=== PATIENT | male | born 1955 | race Caucasian/White ===

== ENCOUNTER 2018-07-06 16:00 | Observation (INO) | payer BC, SELFPAY ==
[2018-07-06] VITALS (38 sets, daily range): BP systolic 98–137; BP diastolic 70–93; PULSE 61–84; RESP 10–21; TEMP 36.5–37.2; O2SAT 92–99
[2018-07-06] MEDS: Normal Saline 1,000 ML 1000 ML IV (16:05)
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
[2018-07-06] MEDS: MORPHine 10 MG/ML VIAL 5 MG IVP ×2 (16:20→16:36)
[2018-07-06] MEDS: Normal Saline Flush 10 ML SYR IVP (16:45)
[2018-07-06 16:58] LABS: Abs Immature Grans 0.03 k/cumm (0.0-0.09); Absolute Basophil Count 0.05 k/cumm (0.0-0.2); Absolute Eosinophil Count 0.14 k/cumm (0.0-0.7); Absolute Lymphocyte Count 1.61 k/cumm (1.2-3.4); Absolute Monocyte Count 0.41 k/cumm (0.11-0.7); Absolute Neutrophil Count 4.11 k/cumm (1.2-6.7); Basophils % 0.8; Eosinophils % 2.2; HGB 14.8 g/dL (13.5-17.5); Immature Grans % 0.5; Lymphocytes % 25.4; Mean Corp. HGB Concentration 34.4 g/dL (32.0-36.0); Mean Corpuscular Hemoglobin 30.3 pg (27.0-33.0); Mean Corpuscular Volume 87.9 fL (80-95); Mean Platelet Volume 9.7 fL (8.0-11.0); Monocytes % 6.5; Neutrophils % 64.6; Platelet Count 209 x1000/uL (130-400); RBC 4.89 m/cumm (4.50-6.00); RBC Distribution Width 13.7 % (11.8-14.1); White Blood Cell Count 6.35 k/cumm (4.4-10.8)
[2018-07-06 17:12] LABS: ALT 155 U/L (12-78); AST 240 U/L (15-37); Albumin 3.4 g/dL (3.4-5.0); Alkaline Phosphatase 78 U/L (46-116); Amylase 39 U/L (25-115); Anion Gap 8.1 mmol/L (3-11); BUN 5 mg/dL (7-18); Bilirubin, Total 0.3 mg/dL (0.2-1.0); CO2 28.9 mmol/L (21.0-32.0); CREATININE 1.03 mg/dL (0.70-1.30); Calcium 7.7 mg/dL (8.5-10.1); Chloride 104 mmol/L (98-107); ETHANOL BLOOD 115.4 mg/dL (<3); Glucose 98 mg/dL (70-100); Lipase 222 U/L (73-393); Magnesium 1.8 mg/dL (1.8-2.4); Potassium 3.8 mmol/L (3.5-5.1); Sodium 141 mmol/L (136-145); Total Protein 6.3 g/dL (6.4-8.2); Troponin I 0.02 ng/mL (0.00-0.06)
[2018-07-06] MEDS: Omnipaque 350 MG/ML 100 ML BTL IJ (17:40)
[2018-07-06] MEDS: HYDROmorphone 2 MG/ML VIAL 1 MG IVP ×4 (17:45→23:56)
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
[2018-07-06 18:33] LABS: Bilirubin Negative (Negative); Blood Moderate (Negative); Clarity Clear; Glucose Negative (Negative); Ketones Negative (Negative); Leukocyte Esterase Negative (Negative); Nitrite Negative (Negative); Specific Gravity <= 1.005 (1.005-1.025); Urobilinogen 0.2 EU/dL (Up TO 0.2); pH 5.5 (5-8)
[2018-07-06 18:44] LABS: Bacteria Negative HPF (Negative); C & S Indicated? No; Casts 3-5 Coarse Granular LPF (Negative); Crystals Negative HPF (Negative); Epithelial Cells Negative HPF (Negative); Mucus Negative (Negative); Other Cells Rare Renal (Negative); WBC Negative HPF (0-5)
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
[2018-07-06] MEDS: Lactated Ringers 1,000 ML 50 ML IV (21:30)
[2018-07-06 21:34] LABS: ALT 145 U/L (12-78); AST 222 U/L (15-37); Albumin 3.5 g/dL (3.4-5.0); Alkaline Phosphatase 82 U/L (46-116); Anion Gap 7.4 mmol/L (3-11); BUN 5 mg/dL (7-18); Bilirubin, Total 0.4 mg/dL (0.2-1.0); CO2 28.6 mmol/L (21.0-32.0); CREATININE 0.93 mg/dL (0.70-1.30); Calcium 7.8 mg/dL (8.5-10.1); Chloride 107 mmol/L (98-107); Glucose 97 mg/dL (70-100); Potassium 4.2 mmol/L (3.5-5.1); Sodium 143 mmol/L (136-145); Total Protein 6.7 g/dL (6.4-8.2)
[2018-07-06] MEDS: Ketorolac 30 MG/ML VIAL IVP (21:38)
[2018-07-06] MEDS: oxyCODONE 5 MG TAB PO (23:59)
[2018-07-07] VITALS (101 sets, daily range): BP systolic 110–145; BP diastolic 53–90; PULSE 56–84; RESP 7–30; TEMP 35.8–36.9; O2SAT 88–96
[2018-07-07] MEDS: HYDROmorphone 2 MG/ML VIAL 1 MG IVP ×4 (02:45→17:54)
[2018-07-07] MEDS: Ketorolac 30 MG/ML VIAL IVP ×4 (03:47→22:37)
[2018-07-07] MEDS: oxyCODONE 5 MG TAB PO ×4 (06:11→20:24)
[2018-07-07] MEDS: Levothyroxine 150 MCG TAB PO (06:12)
--- NOTE | 2018-07-07 07:32 | PDOC.CMIN ---
- If Service Date Differs Date of service: 07/07/18 Time of Service: 07:32 Care Management Initial Assess REASON FOR HOSPITALIZATION:: Trauma; Right scapula and rib fractures. PAST MEDICAL HISTORY/PAST SURGICAL HISTORY:: ETOH dependence, depressive disorder, hypertension, hypothyroidism. Surgical hx: knee surgery. PREVIOUS FUNCTIONAL STATUS/SOCIAL/FAMILY SUPPORTS:: Michael resides in his own home in [facility] with his , Hope. 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 Michael reports that he is independent with his ADLs and transportation and has no reservations about returning home when ready per MD. CURRENT FUNCTIONAL STATUS:: Michael is lying in his bed in the ICU when CM visits this morning. He is engaged in conversation, makes good eye contact and is talkative. Michael reports that the pain in his shoulder is minimal however the pain in his ribs is 5/10. He continues to receive IV fluids. ADVANCE DIRECTIVES:: On file at [facility]. Has patient been provided with information about the portal?: No Did the patient sign up for the portal?: No CODE STATUS:: Full Code INSURANCE COVERAGE / FINANCIAL ISSUES:: [employer]. CURRENT HOME/COMMUNITY SERVICES/EQUIPMENT:: No current home or community services. PRIMARY CARE PHYSICIAN:: Jackelin Jacobs. POTENTIAL DISCHARGE NEEDS:: Follow up appointment with PCP. PATIENT/FAMILY EDUCATION NEEDS:: Discharge education, any limitations and follow up plan of care. ANTICIPATED BARRIERS TO DISCHARGE:: No anticipated barriers to discharge. TRANSPORTATION:: Michael will transport via private vehicle with his , Hope. PLAN:: Michael will discharge home when medically ready per MD. Anticipate patient will discharge with no services and follow up with MD. CM will continue to provide support to patient and care team regarding discharge planning and disposition.
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
[2018-07-07 07:38] LABS: Abs Immature Grans 0.01 k/cumm (0.0-0.09); Absolute Basophil Count 0.03 k/cumm (0.0-0.2); Absolute Eosinophil Count 0.04 k/cumm (0.0-0.7); Absolute Lymphocyte Count 1.16 k/cumm (1.2-3.4); Absolute Monocyte Count 0.87 k/cumm (0.11-0.7); Basophils % 0.3; Eosinophils % 0.4; HCT 45.5 % (40.0-50.0); HGB 14.9 g/dL (13.5-17.5); Immature Grans % 0.1; Lymphocytes % 12.8; Mean Corp. HGB Concentration 32.7 g/dL (32.0-36.0); Mean Corpuscular Hemoglobin 29.4 pg (27.0-33.0); Mean Corpuscular Volume 89.9 fL (80-95); Mean Platelet Volume 10.2 fL (8.0-11.0); Monocytes % 9.6; Neutrophils % 76.8; Platelet Count 222 x1000/uL (130-400); RBC 5.06 m/cumm (4.50-6.00); RBC Distribution Width 14.1 % (11.8-14.1); White Blood Cell Count 9.05 k/cumm (4.4-10.8)
[2018-07-07 07:39] LABS: Absolute Neutrophil Count 6.95 k/cumm (1.2-6.7)
[2018-07-07] MEDS: Thiamine 100 MG TAB PO (08:24)
[2018-07-07] MEDS: Escitalopram 20 MG TAB PO (08:25)
[2018-07-07] MEDS: Multivitamin TAB 1 TAB PO (08:25)
[2018-07-07] MEDS: Normal Saline Flush 10 ML SYR IVP (08:25)
[2018-07-07] MEDS: Folic Acid 1 MG TAB PO (08:25)
[2018-07-07] MEDS: Losartan 50 MG TAB 100 MG PO (08:25)
[2018-07-07] MEDS: Acetaminophen 325 MG TAB 650 MG PO ×2 (10:12→16:27)
--- NOTE | 2018-07-07 10:25 | W.PM.PROGNOT ---
Subjective Patient reports: no new complaints Objective Objective Clinical Data: Abnormal lab results 07/06/18 07/06/18 07/06/18 Range/Units 16:45 18:15 21:15 Absolute Neutrophils (1.2-6.7) k/cumm Absolute Lymphocytes (1.2-3.4) k/cumm Absolute Monocytes (0.11-0.7) k/cumm BUN 5 L 5 L (7-18) mg/dL Calcium 7.7 L 7.8 L (8.5-10.1) mg/dL AST 240 H 222 H (15-37) U/L ALT 155 H 145 H (12-78) U/L Total Protein 6.3 L (6.4-8.2) g/dL Urine Blood Moderate H (Negative) Urine RBC 10-20 H (0-2) 07/07/18 Range/Units 06:40 Absolute Neutrophils 6.95 H (1.2-6.7) k/cumm Absolute Lymphocytes 1.16 L (1.2-3.4) k/cumm Absolute Monocytes 0.87 H (0.11-0.7) k/cumm BUN (7-18) mg/dL Calcium (8.5-10.1) mg/dL AST (15-37) U/L ALT (12-78) U/L Total Protein (6.4-8.2) g/dL Urine Blood (Negative) Urine RBC (0-2) Vital Signs Temp 36.8 C 07/07/18 03:00 Pulse 62 07/07/18 06:01 Resp 12 07/07/18 06:01 BP 123/79 07/07/18 06:01 Pulse Ox 96 07/07/18 06:00 Intake & Output 07/06/18 07/07/18 07/07/18 18:59 06:59 18:59 Intake Total 1000 / 1000 1240 / 1240 Output Total 250 / 250 Balance 750 / 750 1240 / 1240 Weight 104.2 kg 103 kg Intake: IV 1000 / 1000 1000 / 1000 Oral 240 / 240 Output: Urine 250 / 250 Laboratory Results WBC 9.05 k/cumm (4.4-10.8) D 07/07/18 06:40 RBC 5.06 m/cumm (4.50-6.00) 07/07/18 06:40 Hgb 14.9 g/dL (13.5-17.5) 07/07/18 06:40 Hct 45.5 % (40.0-50.0) 07/07/18 06:40 MCV 89.9 fL (80-95) 07/07/18 06:40 MCH 29.4 pg (27.0-33.0) 07/07/18 06:40 MCHC 32.7 g/dL (32.0-36.0) 07/07/18 06:40 RDW 14.1 % (11.8-14.1) 07/07/18 06:40 Plt Count 222 x1000/uL (130-400) 07/07/18 06:40 MPV 10.2 fL (8.0-11.0) 07/07/18 06:40 Immature Gran % 0.1 07/07/18 06:40 Neutrophils % 76.8 07/07/18 06:40 Lymphocytes % 12.8 07/07/18 06:40 Monocytes % 9.6 07/07/18 06:40 Eosinophils % 0.4 07/07/18 06:40 Basophils % 0.3 07/07/18 06:40 Absolute Neutrophils 6.95 k/cumm (1.2-6.7) H 07/07/18 06:40 Absolute Lymphocytes 1.16 k/cumm (1.2-3.4) L 07/07/18 06:40 Absolute Monocytes 0.87 k/cumm (0.11-0.7) H 07/07/18 06:40 Absolute Eosinophils 0.04 k/cumm (0.0-0.7) 07/07/18 06:40 Absolute Basophils 0.03 k/cumm (0.0-0.2) 07/07/18 06:40 Sodium 143 mmol/L (136-145) 07/06/18 21:15 Potassium 4.2 mmol/L (3.5-5.1) 07/06/18 21:15 Chloride 107 mmol/L (98-107) 07/06/18 21:15 Carbon Dioxide 28.6 mmol/L (21.0-32.0) 07/06/18 21:15 Anion Gap 7.4 mmol/L (3-11) 07/06/18 21:15 BUN 5 mg/dL (7-18) L 07/06/18 21:15 Creatinine 0.93 mg/dL (0.70-1.30) 07/06/18 21:15 Estimated GFR/1.73 m2 >= 60.00 (mL/min/1.73m2) 07/06/18 21:15 Glucose 97 mg/dL (70-100) 07/06/18 21:15 Calcium 7.8 mg/dL (8.5-10.1) L 07/06/18 21:15 Magnesium 1.8 mg/dL (1.8-2.4) 07/06/18 16:45 Total Bilirubin 0.4 mg/dL (0.2-1.0) 07/06/18 21:15 AST 222 U/L (15-37) H 07/06/18 21:15 ALT 145 U/L (12-78) H 07/06/18 21:15 Alkaline Phosphatase 82 U/L (46-116) 07/06/18 21:15 Troponin I 0.02 ng/mL (0.00-0.06) 07/06/18 16:45 Total Protein 6.7 g/dL (6.4-8.2) 07/06/18 21:15 Albumin 3.5 g/dL (3.4-5.0) 07/06/18 21:15 Amylase 39 U/L (25-115) 07/06/18 16:45 Lipase 222 U/L (73-393) 07/06/18 16:45 Urine Color Yellow (Yellow) 07/06/18 18:15 Urine Clarity Clear 07/06/18 18:15 Urine pH 5.5 (5-8) 07/06/18 18:15 Ur Specific [place] <= 1.005 (1.005-1.025) 07/06/18 18:15 Urine Protein Negative mg/dL (Negative) 07/06/18 18:15 Urine Ketones Negative mg/dL (Negative) 07/06/18 18:15 Urine Blood Moderate (Negative) H 07/06/18 18:15 Urine Nitrite Negative (Negative) 07/06/18 18:15 Urine Bilirubin Negative (Negative) 07/06/18 18:15 Urine Urobilinogen 0.2 EU/dL (Up TO 0.2) 07/06/18 18:15 Ur Leukocyte Esterase Negative (Negative) 07/06/18 18:15 Urine RBC 10-20 (0-2) H 07/06/18 18:15 Urine WBC Negative HPF (0-5) 07/06/18 18:15 Ur Epithelial Cells Negative HPF (Negative) 07/06/18 18:15 Urine Crystals Negative HPF (Negative) 07/06/18 18:15 Urine Bacteria Negative HPF (Negative) 07/06/18 18:15 Urine Casts 3-5 coarse granular LPF (Negative) 07/06/18 18:15 Urine Mucus Negative (Negative) 07/06/18 18:15 Urine Other Rare renal (Negative) 07/06/18 18:15 Ur Culture Indicated? No 07/06/18 18:15 Urine Glucose Negative mg/dL (Negative) 07/06/18 18:15 Ethyl Alcohol 115.4 mg/dL (<3) 07/06/18 16:45
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
[2018-07-07] MEDS: Docusate Sodium 100 MG CAP PO ×2 (14:37→19:55)
[2018-07-07] MEDS: Lactated Ringers 1,000 ML 50 ML IV (16:28)
--- NOTE | 2018-07-07 17:25 | PHARADMIT ---
Admission Pharmacy Clinical Review trauma Code Status Full Code Current Weight 103 kg Renally Cleared and Narrow Therapeutic Index Meds Crcl ~98.00 mL/min QTc Value / Action Taken BP Control, Fever BP 119/86 afebrile Electrolytes reviewed within normal limits DVT Prophylaxis none Opiate Usage / Scheduled Bowel Regimen Ordered prn/peña Plt/SCr for Heparin / Enoxaparin plt 222 SCr 0.93 INR for Warfarin n/a H/H stable, WBC/Bands h/h 14.9/45.5 wbc 9.05 Antibiotic appropriateness n/a Cultures and Sensitivities n/a Surgical ABX d/c within 24 hr n/a DM control / Insulin Dosing Bg 97 n/a Heart Failure (Check EF%) (GIBSON's, B-Block, Diuretics) hydrochlorothiazide, losartan IV to PO Switch n/a Home Meds Reviewed escitalopram may enhance the antiplatelet effect of meloxicam Home Meds Not Ordered meloxicam, triamcinolone Comments
[2018-07-08] VITALS (40 sets, daily range): BP systolic 120–146; BP diastolic 65–78; PULSE 52–65; RESP 5–19; TEMP 36.6–36.7; O2SAT 94–96
[2018-07-08] MEDS: oxyCODONE 5 MG TAB PO ×3 (02:59→12:02)
[2018-07-08] MEDS: Ketorolac 30 MG/ML VIAL IVP ×2 (04:42→10:28)
[2018-07-08] MEDS: Levothyroxine 150 MCG TAB PO (05:55)
[2018-07-08] MEDS: Losartan 50 MG TAB 100 MG PO (08:33)
[2018-07-08] MEDS: Docusate Sodium 100 MG CAP PO (08:34)
[2018-07-08] MEDS: Thiamine 100 MG TAB PO (08:34)
[2018-07-08] MEDS: Escitalopram 20 MG TAB PO (08:34)
[2018-07-08] MEDS: Multivitamin TAB 1 TAB PO (08:34)
[2018-07-08] MEDS: Folic Acid 1 MG TAB PO (08:34)
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
== END 2018-07-08 12:00 | disposition home or self-care (01) ==
LOC: ER 19:28 → ICU 07-07 05:25
PROVIDERS: Admitting Provider Surgery; Emergency Provider Student in an Organized Health Care Education/Training Program; PCP Family Medicine; Visit Provider Surgery
DX: S22.41XA Multiple fractures of ribs, right side, initial encounter for closed fracture (principal); S42.101A Fracture of unspecified part of scapula, right shoulder, initial encounter for closed fracture; G89.11 Acute pain due to trauma; V84.5XXA Driver of special agricultural vehicle injured in nontraffic accident, initial encounter; Y93.H9 Activity, other involving exterior property and land maintenance, building and construction; Y92.017 Garden or yard in single-family (private) house as the place of occurrence of the external cause; I10 Essential (primary) hypertension; E03.9 Hypothyroidism, unspecified; F10.220 Alcohol dependence with intoxication, uncomplicated; Y90.5 Blood alcohol level of 100-119 mg/100 ml; F32.9 Major depressive disorder, single episode, unspecified; S22.49XA Multiple fractures of ribs, unspecified side, initial encounter for closed fracture; S42.109A Fracture of unspecified part of scapula, unspecified shoulder, initial encounter for closed fracture
CPT/HCPCS: 36415; 74177; 80053; 83690; 93005; 96361; 96374; 96375; 96376; 99222; 99232; 99238; 99253; 99285; 70450; 71260; 72125; 80320; 81003; 81015; 82150; 83735; 84484; 85025; 93010; G0378; J1885; J2270; J3490; L3650

== ENCOUNTER 2018-07-23 08:59 | Outpatient (CLI) | payer BC, SELFPAY ==
--- NOTE | 2018-07-23 08:12 | DI.RAD_ITS ---
SYMPTOM/DIAGNOSIS: RIGHT SCAPULA FRACTURE RIGHT SHOULDER: There is a displaced fracture involving the scapular blade and note is made of fractures of the 3rd through 6th ribs, where there are apparent fractures in two places. The findings are at risk for a flail chest.
== END 2018-07-23 09:19 ==
PROVIDERS: PCP Family Medicine; Visit Provider Student in an Organized Health Care Education/Training Program
DX: S42.111D Displaced fracture of body of scapula, right shoulder, subsequent encounter for fracture with routine healing (principal); S22.41XD Multiple fractures of ribs, right side, subsequent encounter for fracture with routine healing
CPT/HCPCS: 73030

== ENCOUNTER 2018-12-16 09:09 | Outpatient (CLI) | payer BC, SELFPAY ==
[2018-12-16 10:04] LABS: Hemoglobin A1C 5.6 % (4.5-6.2)
[2018-12-16 10:24] LABS: Iron 92 ug/dL (50-175)
[2018-12-16 10:52] LABS: ALT 38 U/L (12-78); AST 23 U/L (15-37); Albumin 3.6 g/dL (3.4-5.0); Alkaline Phosphatase 119 U/L (46-116); Anion Gap 6.5 mmol/L (3-11); BUN 10 mg/dL (7-18); Bilirubin, Total 0.4 mg/dL (0.2-1.0); CO2 32.5 mmol/L (21.0-32.0); CREATININE 1.13 mg/dL (0.70-1.30); Calcium 8.7 mg/dL (8.5-10.1); Chloride 105 mmol/L (98-107); Cholesterol 228 mg/dL (50-200); Glucose 97 mg/dL (70-100); HDL Cholesterol 52 mg/dL (40-60); LDL CHOLESTEROL 143 mg/dL (<100); Sodium 144 mmol/L (136-145); TSH (W/Ref FT4) 2.38 uIU/mL (0.358-3.74); Triglyceride 151 mg/dL (30-150); Vitamin B12 341 pg/mL (193-986)
== END 2018-12-16 09:29 ==
PROVIDERS: PCP Family Medicine; Visit Provider Family Medicine
DX: R03.0 Elevated blood-pressure reading, without diagnosis of hypertension (principal); I25.10 Atherosclerotic heart disease of native coronary artery without angina pectoris; E03.9 Hypothyroidism, unspecified; G47.00 Insomnia, unspecified
CPT/HCPCS: 36415; 80053; 80061; 83721; 82607; 83036; 83540; 84443

== ENCOUNTER 2019-04-20 10:16 | Outpatient (CLI) | payer BC, SELFPAY ==
--- NOTE | 2019-04-20 10:14 | DI.RAD_ITS ---
SYMPTOM/DIAGNOSIS: BILAT KNEE PAIN RIGHT KNEE: There is mild narrowing of the medial femoral tibial joint space. There is mild periarticular spurring throughout. There is some spurring at the quadriceps insertion on the patella. No joint effusion is seen. IMPRESSION: Mild degenerative changes. LEFT KNEE: The joint spaces are well maintained. There is minimal periarticular spurring. There is slight spurring of the quadriceps insertion on the patella. No joint effusion is seen. IMPRESSION: Minimal degenerative changes.
== END 2019-04-20 10:36 ==
PROVIDERS: PCP Family Medicine; Visit Provider Physician Assistant
DX: M25.561 Pain in right knee (principal); M25.562 Pain in left knee; M17.0 Bilateral primary osteoarthritis of knee
CPT/HCPCS: 73562

== ENCOUNTER 2021-01-23 11:08 | Outpatient (CLI) | payer BC, SELFPAY ==
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
== END 2021-01-23 11:28 ==
PROVIDERS: PCP Family Medicine; Visit Provider Family Medicine
DX: M25.511 Pain in right shoulder (principal); Z87.81 Personal history of (healed) traumatic fracture
CPT/HCPCS: 73030

== ENCOUNTER 2021-06-05 13:54 | Outpatient (CLI) | payer BC, SELFPAY ==
--- NOTE | 2021-06-05 09:00 | DI.RAD_ITS ---
Exam(s) XR HAND LT COMPLETE EXAM: XR HAND LT COMPLETE CLINICAL HISTORY: left middle finger discomfort MCP and PIP. TECHNIQUE: 2D digital imaging was performed. COMPARISON: No exams were available for comparison FINDINGS: BONES: No acute fracture is present. No bony destructive lesion is seen. JOINTS: No dislocation present. Mild joint space narrowing interphalangeal joints. Mild periarticul ar spurring. SOFT TISSUE: Normal. IMPRESSION: Mild degenerative changes of the interphalangeal joints. DATA REPOSITORY: RADIATION DOSE DELIVERED:
== END 2021-06-05 13:55 | disposition home or self-care (01) ==
LOC: DIORS 13:54
PROVIDERS: PCP Family Medicine; Referring Provider Family Medicine; Visit Provider Physician Assistant
DX: M19.042 Primary osteoarthritis, left hand (principal); M65.332 Trigger finger, left middle finger
CPT/HCPCS: 73130

== ENCOUNTER 2021-06-13 11:01 | Day surgery (SDC) | payer BC, SELFPAY ==
[2021-06-13 11:12] VITALS: BP 120/82; PULSE 68; RESP 16; TEMP 36.1; O2SAT 97
--- NOTE | 2021-06-13 11:22 | W.ANESPRE ---
General Info Date of Service Date Performed: 06/13/21 Height: 6 ft 2 in Weight: 110.6 kg Body Mass Index (BMI): 31.3 Surgical Procedure: Operation Date: 06/13/21 13:25 Proposed Procedures Side Surgeon p (L) ECTR, LMF TRIGGER FINGER RELEASE Left Rafi Lobo MD Meds Allergies and Home Medications Allergies Allergy/AdvReac Type Severity Reaction Status Date / Time valproic acid AdvReac Intermediate Over-stimul Verified 06/13/21 11:17 ation lisinopril AdvReac Mild COUGH Verified 06/13/21 11:17 Opioids - Morphine Analogues AdvReac Mild ADDICTIVE Verified 06/13/21 11:17 PERSONALITY Home Medication Medication Instructions Recorded divalproex 500 mg tablet,extended 1,500 mg PO DAILY #270 tab 07/25/20 release 24 hr escitalopram oxalate 10 mg tablet 10 mg PO DAILY #90 tab 03/10/21 levothyroxine 150 mcg tablet 150 mcg PO DAILY #90 tab-cap 04/28/21 losartan 50 mg-hydrochlorothiazide 1 tab PO DAILY #90 tab 04/28/21 12.5 mg tablet triamcinolone acetonide 0.1 % 1 applic TP BID #80 gm 05/24/21 topical cream Current Visit Medications: Current Medications Generic Name Dose Route Start Last Admin Trade Name Freq PRN Reason Stop Dose Admin Ringer's Solution 1,000 mls @ 80 mls/hr 06/13/21 06:00 IV 07/12/21 23:59 INFUSION HERBERT Cefazolin Sodium 2,000 mg/ 100 mls @ 200 mls/hr 06/13/21 06:00 Sodium Chloride IVPB 06/13/21 16:00 PREOP HERBERT IV Miscellaneous Supplies 1 each 06/13/21 06:00 Iv Access IV 07/12/21 23:59 DIRECTED HERBERT Sodium Chloride 0 ml 06/13/21 06:00 Normal Saline Flush 10 Ml Syr IV 07/12/21 23:59 PRN PRN Sodium Chloride 0 ml 06/13/21 06:00 Normal Saline 10 Ml Vial IJ 07/12/21 23:59 DIRECTED PRN Sterile Water 0 ml 06/13/21 06:00 Water,Injection,Sterile 10 Ml Vial IJ 07/12/21 23:59 DIRECTED PRN PFSH Active Problems Active Problems: Problem Status Onset Code Left carpal tunnel syndrome G56.02 Right carpal tunnel syndrome G56.01 Trigger finger, right middle finger M65.331 Trigger finger, left middle finger M65.332 Frozen shoulder M75.00 Actinic keratosis L57.0 Right shoulder pain M25.511 Annual physical exam Z00.00 Attention deficit hyperactivity disorder, predominantly inattentive type F90.0 Chronic lumbar radiculopathy 03/03/15 M54.16 History of spinal surgery Z98.890 Neck pain M54.2 Rib pain 01/02/16 R07.81 Seborrheic keratosis 08/02/15 L82.1 Snoring 09/27/15 R06.83 Spasm of back muscles 04/12/15 M62.830 Tobacco dependence syndrome F17.200 Primary osteoarthritis of right knee M17.11 Primary osteoarthritis of left knee M17.12 Sleep apnea Actinic keratosis L57.0 Varicose veins of lower extremity I83.90 Testicular hypofunction E29.1 Migraine G43.909 Insomnia 10/15/17 G47.00 Hypothyroidism E03.9 Hemorrhoids K64.9 Folate deficiency 12/29/16 E53.8 Essential hypertension 09/25/13 I10 Depressive disorder F32.9 ETOH abuse F10.10 Medical History Medical History Actinic keratosis ADHD (attention deficit hyperactivity disorder), inattentive type predominantly Alcohol dependence Alcohol dependence, continuous (03/03/15) Annual physical exam (01/30/18) Asthma Cough (11/22/15) Depressive disorder Depressive disorder Essential hypertension (09/25/13) ETOH abuse Folate deficiency (12/29/16) Fracture of right scapular body Hemorrhoids HTN (hypertension) Hypothyroidism Hypothyroidism Insomnia (10/15/17) Left carpal tunnel syndrome Lumbar back pain S/P surgery; now w/ repeat disc herniation Lumbar radiculopathy, chronic 03/03/15 Migraine Multiple rib fractures Muscle spasm of back 04/12/15 Other and unspecified alcohol dependence, continuous drinking behavior 03/03/15 Right carpal tunnel syndrome Seborrheic keratoses 08/02/15 Skin eruption Chronic rash L.E. Skin eruption Sleep apnea Testicular hypofunction Tobacco dependence syndrome chews tobacco Trigger finger, left middle finger Trigger finger, right middle finger Varicose veins of lower extremity Surgical History Surgical History Colonoscopy - MAC (03/22/17) History of back surgery PROCEDURES Back pain s/p surgery, now with repeat disc herniation; bilateral knee surgery S/P knee surgery Tobacco Smoking/Tobacco Use Status: Former Tobacco Use Tobacco: How many years used: 50 Smokeless tobacco user: chewing tobacco Passive smoking exposure: Yes Quit Status: considering quitting Second hand exposure: No Alcohol Alcohol Intake: former Substance Use Substance use: Never Substance use type: does not use Vital Signs and Lab Results Vital Signs Most Recent Vital Signs in EMR: Most Recent Vital Signs Temp Pulse Resp BP Pulse Ox 36.1 C L 68 16 120/82 97 06/13/21 11:12 06/13/21 11:12 06/13/21 11:12 06/13/21 11:12 06/13/21 11:12 Lab Results Blood Type / Crossmatch: No Data to Display Complete Blood Count: No Data to Display Complete Metabolic Panel: No Data to Display Liver Function Panel: No Data to Display Coagulation Panel: No Data to Display Cardiac Panel: No Data to Display Arterial Blood Gas: No Data to Display Venous Blood Gas: No Data to Display Pancreas Panel: No Data to Display Thyroid Panel: No Data to Display Infectious Disease: No Data to Display Blood Cultures: No Data to Display Toxicology Panel: No Data to Display Imaging and Studies Imaging and Studies Stress Test Summary: 2017: ECG negative, treadmill score 10. target HR was achieved. no chest pain. Echocardiogram Summary: 03/2017: LVEF 55-60%, no WMA, normal RVFxn. Anesthesia Assessment and Plan Anesthesia History Personal History: No History of Anesthesia Complications Family History: No Family History of Anesthesia Complications Exercise Tolerance Exercise Tolerance: Metabolic Equivalents>4 Cardiac & Pulmonary Exam Cardiac Exam: Normal S1/S2 Heart Sounds Pulmonary Exam: Clear Bilateral Breath Sounds Airway Exam Known Difficult Airway: No Mallampati Class: 2 Mouth Opening: Normal (> 3cm) Thyromental Distance: Greater than 3 cm Neck Range of Motion: Full ROM Neck Circumference: Normal Teeth Condition: Normal Dentition ASA Classification ASA Score: ASA 2 Emergency Case?: No NPO Status NPO Status: NPO Clears >2 hours, Solids >8 hours Anesthesia Plan Resuscitation Status: Full Code Anesthesia Technique: General Anesthesia Airway Planned: Natural Airway Monitors Used: Standard Monitors Preoperative Comments:: 65 yo male for trigger finger and carpel tunnel repair. PMHx of HTN (lisinopril and hydrochlorothiazide), hypothyroid (stable on levothyroxine), HUSSAIN (uses CPAP. Denies major GERD.
[2021-06-13] MEDS: Lactated Ringers 1,000 ML 80 ML IV (11:42)
[2021-06-13 11:43] VITALS: BMI 31.3
[2021-06-13] MEDS: ceFAZolin 2,000 MG in Normal Saline 100 ML 200 MG IVPB (13:03)
[2021-06-13] MEDS: Sodium Bicarbonate 50 MEQ/50 ML VIAL (13:22)
[2021-06-13 13:29] VITALS: BP 107/70; PULSE 68; RESP 16; TEMP 36.3; O2SAT 96
--- NOTE | 2021-06-13 13:40 | W.PM.DSUDISC ---
Discharge Plan Disposition Patient Disposition: HOME Condition: Good Discharge Details Reason For Visit: L ECTR, LMF trigger release Attending Provider: Rafi Lobo Primary Care Provider: Jackelin Jacobs Home Meds and New Rx's Prescriptions: New hydrocodone-acetaminophen 5-325 mg tablet 1 tab PO Q6H PRN (Reason: pain) Qty: 3 RF: 0 ibuprofen 600 mg tablet 600 mg PO TID PRN (Reason: pain) Qty: 30 RF: 0 acetaminophen 500 mg capsule 1,000 mg PO Q8H PRN PRNQty: 90 RF: 0 Continued divalproex [Depakote ER] 500 mg tablet extended release 24 hr 1,500 mg PO DAILY Qty: 270 RF: 4 escitalopram oxalate [Lexapro] 10 mg tablet 10 mg PO DAILY Qty: 90 RF: 4 levothyroxine 150 mcg tablet 150 mcg PO DAILY Qty: 90 RF: 12 losartan-hydrochlorothiazide 50-12.5 mg tablet 1 tab PO DAILY Qty: 90 RF: 4 triamcinolone acetonide 0.1 % cream 1 applic TP BID Qty: 80 RF: 4 Discharge Instructions Stand Alone Forms: [place] T. Finger Release, [place] C. Tunnel Release Activity:: Activity as Tolerated Remove Dressings/Wound Care:: 48 hours Shower/Bathe:: 48 hours Diet:: As Tolerated Discharge Orders Discharge Orders: Discharge Order (Routine); Ordered 06/13/21 Ordered By: Mehul Singh DS: Diagnosis Discharge Diagnosis (1) Left carpal tunnel syndrome: Status: Acute (2) Trigger finger, left middle finger: Status: Acute
[2021-06-13 14:01] VITALS: BP 120/78; PULSE 63; RESP 16; TEMP 36.2; O2SAT 96
--- NOTE | 2021-06-13 14:12 | W.ANESPOSTOP ---
Postoperative Evaluation Date, Time and Location Date Performed: 06/13/21 Time Performed: 14:12 Patient Location: Day Surgery Unit Vital Signs Most Recent Imported Vital Signs: Most Recent Vital Signs Temp Pulse Resp BP Pulse Ox 36.2 C L 63 16 120/78 96 06/13/21 14:01 06/13/21 14:01 06/13/21 14:01 06/13/21 14:01 06/13/21 14:01 Pain Score Most Recent Pain Score: Most Recent Pain Score Pain Level 0 06/13/21 14:01 Assessment Mental Status: Awake (Alert & Oriented to Patient Baseline) Airway and Respiratory Function: Patent airway with normal (patient baseline) respiratory exam Cardiovascular Function: Hemodynamically Stable Hydration Status: Adequately Hydrated Nausea & Vomiting: No Nausea or Vomiting Pain: Pt. Denies Any Pain Peripheral Nerve Block: Patient did not receive a nerve block
--- NOTE | 2021-06-13 14:34 | ROE_ITS ---
Date of service: 06/13/21 Time of Service: 13:49 Operative Note Operative Note DATE OF PROCEDURE: 06/13/21 PRE-OP DIAGNOSIS: Left Carpal Tunnel Syndrome, Left Middle Finger Trigger Finger POST-OP DIAGNOSIS: same PROCEDURE: Left Endoscopic Carpal Tunnel Release, Left Middle Finger Trigger Release SURGEON: Rafi Lobo ANESTHESIA TYPE: General:No Airway Refer to Anesthesia Record ESTIMATED BLOOD LOSS: 0 PATHOLOGY: none sent TOURNIQUET TIME: 10 COMPLICATIONS: None Patient was transported to: same day Patient's condition: stable Indications: I have seen Bill in clinic for symptoms of carpal tunnel syndrome and a left middle finger trigger finger. The numbness, tingling, and pain limited function as well as the clicking and triggering of his finger. Clinical exam findings with nerve conduction tests confirmed the diagnosis of carpal tunnel syndrome. Clinical exam confirmed the diagnosis of a trigger finger. Nonoperative measures such as bracing, time, activity modifications had been tried but disability and pain persisted. I discussed carpal tunnel release with the patient. I reviewed the risks of the procedure to include, but not limited to, bleeding, infection, pain, stiffness, incomplete release, damage to nerves or vessels, persistent numbness, recurrence. Despite these risks, the patient elected to proceed. Findings: There was tightened carpal tunnel. This was dilated and released successfully with the endoscopic with increased space within the tunnel. The antebrachial fascia was released proximally freeing the median nerve at the wrist. Procedure Description: Michael was greeted in the preoperative holding area where the correct side was identified and marked. The consent was reviewed with the patient and signed. The history and physical was updated. All questions were answered. He was taken back to the operating room. The patient was placed into the supine position on the operating room table with the left arm on an arm board. A nonsterile tourniquet was placed high onto the arm. All bony prominences were well padded. Prophylactic antibiotics in the form of Cefazolin were administered. The left arm was then prepped with Chloraprep and draped in a standard fashion with stockinette and extremity drape. A timeout to confirm correct identity, side and site, procedure, allergies, anesthesia, and medical concerns was performed. The surgical site was marked in the volar wrist creases in line with the radial border of the fourth ray as well as within the distal palmar crease overlying the A1 fernie of the middle finger MCP joint. These areas were anesthetized w ith a total of approximately 10cc of 1% Lidocaine. The limb was then exsanguinated with an Esmarch. The skin was incised with a 15 blade, approximately 1cm. The skin only was cut and the deeper tissue was dissected bluntly with a tenotomy scissor, avoiding passing nerve and venous structures. The fascia was penetrated and opened bluntly. A two-prong skin hook was placed under this proximal fascial edge. A series of hamate finders were used to identify and dilate the carpal tunnel. Synovial elevator was used to free synovial attachments to the underside of the transverse carpal ligament. My thumb was kept in the palm to kevin the distal extent of the carpal tunnel and correctly position the hand. The [employer] endoscope was inserted without difficulty and without resistance. Excellent visualization showed horizontally running fibers of the transverse carpal ligament (TCL). The distal extent of the TCL was visualized and the end of the scope palpated with the thumb. The blade was elevated and withdrawn from distal to proximal. The TCL was split into two flaps. The endoscope was reinserted to confirm complete release and any remnant ligament was incised. The scope was withdrawn and the proximal aspect of the carpal tunnel was grossly inspected and appeared release with the median nerve visible. The antebrachial fascia at the level of the wrist was then freed from the overlying skin and then the underlying median nerve with blunt dissection. This was transected longitudinally for about 3cm proximal to the wrist incision. The wound was then irrigated with easy flow of irrigant distally and proximally. The incision was closed with a single 4-0 Nylon suture. Patient was then turned to the trigger finger part of the surgery. The skin was incised sharply through skin only. Blunt dissection was carried down with a tenotomy scissor to the A1 fernie. The proximal edge of the A1 fernie was easily identified it was incised with the scissors. This was inspected and any other tight tissues across the flexor tendons were incised directly in its midline. The tendon was then pulled out of the wound and inspected without signs of tenosynovitis nor tearing. The wound was then irrigated. The wound was closed with a 4-0 nylon. Both wounds were dressed with Xeroform, Gauze, Kerlix and Ryan. The tourniquet was deflated with the initial dressing and held with some pressure. Blood flow returned easily to all digits with capillary refill less than 2 seconds. The patient tolerated the procedure well and was returned to the Same Day Surgery area in a stable condition suffering no known complication.
== END 2021-06-13 14:40 | disposition home or self-care (01) ==
PROVIDERS: PCP Family Medicine; Visit Provider Student in an Organized Health Care Education/Training Program
PROC: 01N54ZZ Release Median Nerve, Percutaneous Endoscopic Approach (ICD-10-PCS; CPT 29848; principal; 2021-06-13 13:15)
DX: G56.02 Carpal tunnel syndrome, left upper limb (principal); M65.332 Trigger finger, left middle finger
CPT/HCPCS: 29848; 26055; J0690; J1885; J2001

== ENCOUNTER 2021-06-20 09:01 | Day surgery (SDC) | payer BC, SELFPAY ==
--- NOTE | 2021-06-20 07:39 | W.PM.DSUDISC ---
Discharge Plan Disposition Patient Disposition: HOME Condition: Good Discharge Details Reason For Visit: Right ECTR and Right Middle Finger trigger release Attending Provider: Rafi Lobo Primary Care Provider: Jackelin Jacobs Home Meds and New Rx's Prescriptions: Continued escitalopram oxalate [Lexapro] 10 mg tablet 10 mg PO DAILY Qty: 90 RF: 4 levothyroxine 150 mcg tablet 150 mcg PO DAILY Qty: 90 RF: 12 losartan-hydrochlorothiazide 50-12.5 mg tablet 1 tab PO DAILY Qty: 90 RF: 4 triamcinolone acetonide 0.1 % cream 1 applic TP BID Qty: 80 RF: 4 divalproex [Depakote ER] 500 mg tablet extended release 24 hr 1,500 mg PO HS RF: 0 hydrocodone-acetaminophen 5-325 mg tablet 1 tab PO Q6H PRN (Reason: pain) Qty: 3 RF: 0 ibuprofen 600 mg tablet 600 mg PO TID PRN (Reason: pain) Qty: 30 RF: 0 acetaminophen 500 mg capsule 1,000 mg PO Q8H PRN PRNQty: 90 RF: 0 Discharge Instructions Stand Alone Forms: [place] Foley Tunnel Release Referrals: Rafi Lobo MD [ [facility]] - Activity:: Activity as Tolerated Remove Dressings/Wound Care:: 72 hours Shower/Bathe:: 72 hours Diet:: As Tolerated Discharge Orders Discharge Orders: Discharge Order (Routine); Ordered 06/20/21 Ordered By: Eusebia Felix DS: Diagnosis Discharge Diagnosis (1) Right carpal tunnel syndrome: Status: Acute (2) Trigger finger, right middle finger: Status: Acute
[2021-06-20 09:18] VITALS: BP 150/90; PULSE 70; RESP 16; TEMP 36; O2SAT 95
[2021-06-20] MEDS: Lactated Ringers 1,000 ML 80 ML IV ×2 (09:40→09:42)
--- NOTE | 2021-06-20 09:55 | W.ANESPRE ---
General Info Date of Service Date Performed: 06/20/21 Height: 6 ft 2 in Weight: 112.8 kg Body Mass Index (BMI): 31.9 Surgical Procedure: Operation Date: 06/20/21 10:25 Proposed Procedures Side Surgeon p Wrist ECTR Right Rafi Lobo MD s RM[facility] TRIGGER RELEASE Right Rafi Lobo MD Meds Allergies and Home Medications Allergies Allergy/AdvReac Type Severity Reaction Status Date / Time valproic acid AdvReac Intermediate Over-stimul Verified 06/19/21 11:47 ation lisinopril AdvReac Mild COUGH Verified 06/19/21 11:47 Opioids - Morphine Analogues AdvReac Mild ADDICTIVE Verified 06/19/21 11:47 PERSONALITY Home Medication Medication Instructions Recorded escitalopram oxalate 10 mg tablet 10 mg PO DAILY #90 tab 03/10/21 levothyroxine 150 mcg tablet 150 mcg PO DAILY #90 tab-cap 04/28/21 losartan 50 mg-hydrochlorothiazide 1 tab PO DAILY #90 tab 04/28/21 12.5 mg tablet triamcinolone acetonide 0.1 % 1 applic TP BID #80 gm 05/24/21 topical cream acetaminophen 1,000 mg PO Q8H PRN PRN #90 cap 06/13/21 hydrocodone-acetaminophen 1 tab PO Q6H PRN #3 tab 06/13/21 ibuprofen 600 mg PO TID PRN #30 tab 06/13/21 divalproex [Depakote ER] 1,500 mg PO HS 06/19/21 Current Visit Medications: Current Medications Generic Name Dose Route Start Last Admin Trade Name Freq PRN Reason Stop Dose Admin Acetaminophen 650 mg 06/20/21 07:39 Acetaminophen 325 Mg Tab PO Q4H PRN PRN Hydrocodone Bitart/Acetaminophen 0 tab 06/20/21 07:39 Hydrocodone 5/Acetaminophen 325 Tab PO Q3H PRN PRN Pain Ringer's Solution 1,000 mls @ 80 mls/hr 06/20/21 06:00 06/20/21 09:42 IV 07/19/21 23:59 80 mls/hr INFUSION HERBERT Administration Cefazolin Sodium 2,000 mg/ 100 mls @ 200 mls/hr 06/20/21 06:00 Sodium Chloride IVPB 06/20/21 23:59 PREOP HERBERT Ondansetron HCl 4 mg/ Sodium 52 mls @ 200 mls/hr 06/20/21 07:39 Chloride IVPB Q6H PRN PRN IV Miscellaneous Supplies 1 each 06/20/21 06:00 Iv Access IV 07/19/21 23:59 DIRECTED HERBERT Sodium Chloride 0 ml 06/20/21 06:00 Normal Saline Flush 10 Ml Syr IV 07/19/21 23:59 PRN PRN Sodium Chloride 0 ml 06/20/21 06:00 Normal Saline 10 Ml Vial IJ 07/19/21 23:59 DIRECTED PRN Sterile Water 0 ml 06/20/21 06:00 Water,Injection,Sterile 10 Ml Vial IJ 07/19/21 23:59 DIRECTED PRN PFSH Active Problems Active Problems: Problem Status Onset Code Left carpal tunnel syndrome G56.02 Right carpal tunnel syndrome G56.01 Trigger finger, right middle finger M65.331 Trigger finger, left middle finger M65.332 Frozen shoulder M75.00 Actinic keratosis L57.0 Right shoulder pain M25.511 Annual physical exam Z00.00 Attention deficit hyperactivity disorder, predominantly inattentive type F90.0 Chronic lumbar radiculopathy 03/03/15 M54.16 History of spinal surgery Z98.890 Neck pain M54.2 Rib pain 01/02/16 R07.81 Seborrheic keratosis 08/02/15 L82.1 Snoring 09/27/15 R06.83 Spasm of back muscles 04/12/15 M62.830 Tobacco dependence syndrome F17.200 Primary osteoarthritis of right knee M17.11 Primary osteoarthritis of left knee M17.12 Sleep apnea Actinic keratosis L57.0 Varicose veins of lower extremity I83.90 Testicular hypofunction E29.1 Migraine G43.909 Insomnia 10/15/17 G47.00 Hypothyroidism E03.9 Hemorrhoids K64.9 Folate deficiency 12/29/16 E53.8 Essential hypertension 09/25/13 I10 Depressive disorder F32.9 ETOH abuse F10.10 Medical History Medical History Actinic keratosis ADHD (attention deficit hyperactivity disorder), inattentive type predominantly Alcohol dependence Alcohol dependence, continuous (03/03/15) Annual physical exam (01/30/18) Asthma Cough (11/22/15) Depressive disorder Depressive disorder Essential hypertension (09/25/13) ETOH abuse Folate deficiency (12/29/16) Fracture of right scapular body Hemorrhoids HTN (hypertension) Hypothyroidism Hypothyroidism Insomnia (10/15/17) Lumbar back pain S/P surgery; now w/ repeat disc herniation Lumbar radiculopathy, chronic 03/03/15 Migraine Multiple rib fractures Muscle spasm of back 04/12/15 Other and unspecified alcohol dependence, continuous drinking behavior 03/03/15 Right carpal tunnel syndrome Seborrheic keratoses 08/02/15 Skin eruption Chronic rash L.E. Skin eruption Sleep apnea Testicular hypofunction Tobacco dependence syndrome chews tobacco Trigger finger, left middle finger S/P release: 06/13/2021 Trigger finger, right middle finger Varicose veins of lower extremity Surgical History Surgical History Colonoscopy - MAC (03/22/17) History of back surgery Left carpal tunnel syndrome S/P ECTR: 06/13/2021 PROCEDURES Back pain s/p surgery, now with repeat disc herniation; bilateral knee surgery S/P knee surgery Tobacco Smoking/Tobacco Use Status: Former Tobacco Use Tobacco: How many years used: 50 Smokeless tobacco user: chewing tobacco Passive smoking exposure: Yes Quit Status: considering quitting Second hand exposure: No Alcohol Alcohol Intake: former Substance Use Substance use: Never Substance use type: does not use Vital Signs and Lab Results Vital Signs Most Recent Vital Signs in EMR: Most Recent Vital Signs Temp Pulse Resp BP Pulse Ox 36 C L 70 16 150/90 H 95 06/20/21 09:18 06/20/21 09:18 06/20/21 09:18 06/20/21 09:18 06/20/21 09:18 Lab Results Blood Type / Crossmatch: No Data to Display Complete Blood Count: No Data to Display Complete Metabolic Panel: No Data to Display Liver Function Panel: No Data to Display Coagulation Panel: No Data to Display Cardiac Panel: No Data to Display Arterial Blood Gas: No Data to Display Venous Blood Gas: No Data to Display Pancreas Panel: No Data to Display Thyroid Panel: No Data to Display Infectious Disease: No Data to Display Blood Cultures: No Data to Display Toxicology Panel: No Data to Display Imaging and Studies Imaging and Studies Stress Test Summary: 2017: ECG negative, treadmill score 10. target HR was achieved. no chest pain. Echocardiogram Summary: 03/2017: LVEF 55-60%, no WMA, normal RVFxn. Anesthesia Assessment and Plan Anesthesia History Personal History: No History of Anesthesia Complications Family History: No Family History of Anesthesia Complications Exercise Tolerance Exercise Tolerance: Metabolic Equivalents>4 Pertinent Negatives Pertinent Negatives: No Symptoms of GERD Cardiac & Pulmonary Exam Cardiac Exam: Normal S1/S2 Heart Sounds Pulmonary Exam: Clear Bilateral Breath Sounds Airway Exam Known Difficult Airway: No Mallampati Class: 2 Mouth Opening: Normal (> 3cm) Thyromental Distance: Greater than 3 cm Neck Range of Motion: Full ROM Neck Circumference: Normal Teeth Condition: Normal Dentition ASA Classification ASA Score: ASA 2 Emergency Case?: No NPO Status NPO Status: NPO Clears >2 hours, Solids >8 hours Anesthesia Plan Resuscitation Status: Full Code Anesthesia Technique: General Anesthesia Airway Planned: Natural Airway Monitors Used: Standard Monitors
[2021-06-20 09:58] VITALS: BMI 31.9
[2021-06-20] MEDS: ceFAZolin 2,000 MG in Normal Saline 100 ML 200 MG IVPB (10:37)
[2021-06-20] MEDS: HYDROcodone 5/Acetaminophen 325 TAB PO (11:23)
[2021-06-20 11:31] VITALS: BP 147/79; PULSE 75; RESP 16; TEMP 36.4; O2SAT 95
--- NOTE | 2021-06-20 12:08 | ROE_ITS ---
Date of service: 06/20/21 Time of Service: 11:08 Operative Note Operative Note DATE OF PROCEDURE: 06/20/21 PRE-OP DIAGNOSIS: Right Carpal Tunnel Syndrome and Right Middle Trigger Finger POST-OP DIAGNOSIS: same PROCEDURE: Right Endoscopic Carpal Tunnel Release, Right Middle Finger Trigger Release SURGEON: Rafi Lobo ANESTHESIA TYPE: General:No Airway Refer to Anesthesia Record ESTIMATED BLOOD LOSS: 0 PATHOLOGY: none sent TOURNIQUET TIME: 8 COMPLICATIONS: None Patient was transported to: same day Patient's condition: stable Indications: I have seen Paulino in clinic for symptoms of carpal tunnel syndrome and a middle trigger finger on the right hand. The numbness, tingling, and pain limited function as well as the clicking and triggering of the middle finger. Clinical exam findings with nerve conduction tests confirmed the diagnosis of carpal tunnel syndrome. Nonoperative measures such as bracing, time, activity modifications had been tried but disability and pain persisted. He had successful release of the carpal tunnel on the left side as well as the middle finger. Therefore, I discussed carpal tunnel release with the patient. I reviewed the risks of the procedure to include, but not limited to, bleeding, infection, pain, stiffness, incomplete release, damage to nerves or vessels, persistent numbness, recurrence. Despite these risks, the patient elected to proceed. Findings: There was tightened carpal tunnel. This was dilated and released successfully with the endoscopic with increased space within the tunnel. The antebrachial fascia was released proximally freeing the median nerve at the wrist. The middle finger A1 fernie was released without notable tendon abnormality. Procedure Description: Paulino was greeted in the preoperative holding area where the correct side was identified and marked. The consent was reviewed with the patient and signed. The history and physical was updated. All questions were answered. He was taken back to the operating room. The patient was placed into the supine position on the operating room table with the right arm on an arm board. A nonsterile tourniquet was placed high onto the arm. All bony prominences were well padded. Prophylactic antibiotics in the form of Cefazolin were administered. The right arm was then prepped with Chloraprep and draped in a standard fashion with stockinette and extremity drape. A timeout to confirm correct identity, side and site, procedure, allergies, anesthesia, and medical concerns was performed. The surgical site was marked in the volar wrist creases in line with the radial border of the fourth ray as well as the distal palmar crease overlying the A1 fernie of the middle finger. These areas were anesthetized with approximately 10cc of 1% Lidocaine. The limb was then exsanguinated with an Esmarch. The skin was incised with a 15 blade, approximately 1cm. The skin only was cut and the deeper tissue was dissected bluntly with a tenotomy scissor, avoiding passing nerve and venous structures. The fascia was penetrated and opened bluntly. A two-prong skin hook was placed under this proximal fascial edge. A series of hamate finders were used to identify and dilate the carpal tunnel. Synovial elevator was used to free synovial attachments to the underside of the transverse carpal ligament. My thumb was kept in the palm to kevin the distal extent of the carpal tunnel and correctly position the hand. The Microaire endoscope was inserted without difficulty and without resistance. Excellent visualization showed horizontally running fibers of the transverse carpal ligament (TCL). The distal extent of the TCL was visualized and the end of the scope palpated with the thumb. The blade was elevated and withdrawn from distal to proximal. The TCL was split into two flaps. The endoscope was reinserted to confirm complete release and any remnant ligament was incised. The scope was withdrawn and the proximal aspect of the carpal tunnel was grossly inspected and appeared release with the median nerve visible. The antebrachial fascia at the level of the wrist was then freed from the overlying skin and then the underlying median nerve with blunt dissection. This was transected longitudinally for about 3cm proximal to the wrist incision. The wound was then irrigated with easy flow of irrigant distally and proximally. The incision was closed with a single 4-0 Nylon suture. Attention was then turned to the trigger finger. A 1 cm incision was made in the distal palmar crease of the middle finger. The soft tissue was dissected bluntly with a tenotomy scissor. To rag nails were placed into the wound for exposure moving soft tissue to either side of the middle finger flexor tendon. The sheath was identified as well as the proximal aspect of the A1 fernie. Using the tenotomy scissor, I incised the A1 fernie with separation of the 2 flaps. The distal and proximal aspects were inspected and there showed to be no recurrent A1 fernie. There also is no other proximal bands of tissue causing constriction against the flexor tendons. A blunt hemostat was then used to withdraw the tendons from the hand and they were inspected. There is no signif icant synovitis and no tendon tearing. A second look was then performed to make sure there is no other sites of compression. The wound was then irrigated. This was then closed with a single 4-0 nylon suture. The wounds were dressed with Xeroform, Gauze, Kerlix and Ryan. The tourniquet was deflated with the initial dressing and held with some pressure. Blood flow returned easily to all digits with capillary refill less than 2 seconds. The patient tolerated the procedure well and was returned to the Same Day Surgery area in a stable condition suffering no known complication.
--- NOTE | 2021-06-20 12:10 | W.ANESPOSTOP ---
Postoperative Evaluation Date, Time and Location Date Performed: 06/20/21 Time Performed: 11:14 Patient Location: Day Surgery Unit Vital Signs Most Recent Imported Vital Signs: Most Recent Vital Signs Temp Pulse Resp BP Pulse Ox 36.4 C L 75 16 147/79 H 95 06/20/21 11:31 06/20/21 11:31 06/20/21 11:31 06/20/21 11:31 06/20/21 11:31 Pain Score Most Recent Pain Score: Most Recent Pain Score Pain Level 0 06/20/21 11:31 Assessment Mental Status: Awake (Alert & Oriented to Patient Baseline) Airway and Respiratory Function: Patent airway with normal (patient baseline) respiratory exam Cardiovascular Function: Hemodynamically Stable Hydration Status: Adequately Hydrated Nausea & Vomiting: No Nausea or Vomiting Pain: Pt. Denies Any Pain Peripheral Nerve Block: Patient did not receive a nerve block
== END 2021-06-20 12:03 | disposition home or self-care (01) ==
LOC: SUR 09:01
PROVIDERS: PCP Family Medicine; Visit Provider Student in an Organized Health Care Education/Training Program
PROC: 01N54ZZ Release Median Nerve, Percutaneous Endoscopic Approach (ICD-10-PCS; CPT 29848; principal; 2021-06-20 10:15)
PROC: (CPT 26055; 2021-06-20 10:15)
DX: G56.01 Carpal tunnel syndrome, right upper limb (principal); M65.331 Trigger finger, right middle finger
CPT/HCPCS: 29848; 26055; J0690; J1885

== ENCOUNTER 2021-07-24 03:27 | Outpatient (CLI) | payer BC, SELFPAY ==
[2021-07-24 12:44] LABS: ALT 66 U/L (16-63); AST 30 U/L (15-37); Albumin 3.7 g/dL (3.4-5.0); Alkaline Phosphatase 74 U/L (46-116); BUN 12 mg/dL (7-18); Bilirubin, Total 0.3 mg/dL (0.2-1.0); CREATININE 1.1 mg/dL (0.70-1.30); Calcium 8.7 mg/dL (8.5-10.1); Calculated LDL 110 mg/dL (<100); Chloride 107 mmol/L (98-107); Cholesterol 181 mg/dL (<200); Glucose 97 mg/dL (74-106); HDL Cholesterol 40 mg/dL (40-60); Sodium 146 mmol/L (136-145); Total Protein 6.8 g/dL (6.4-8.2); Triglyceride 155 mg/dL (<150)
== END 2021-07-24 03:28 | disposition home or self-care (01) ==
LOC: LBO 03:27
PROVIDERS: PCP Family Medicine; Visit Provider Family Medicine
DX: Z00.00 Encounter for general adult medical examination without abnormal findings (principal); Z13.220 Encounter for screening for lipoid disorders; Z13.29 Encounter for screening for other suspected endocrine disorder
CPT/HCPCS: 36415; 80053; 80061; 84443

== ENCOUNTER 2022-05-31 03:08 | Outpatient (CLI) | payer BC, SELFPAY ==
[2022-05-31 08:33] LABS: HCT 47.1 % (40.0-50.0); HGB 15.4 g/dL (13.5-17.5); MCHC 32.7 % (32.0-36.0); MCV 89 fL (80-95); MPV 9.5 fL (8.0-11.0); Platelet Count 219 10^3/uL (130-400); RBC 5.31 10^6/uL (4.36-5.78); RDW 13.2 % (11.8-14.1); RDW-SD 42.8 fL; WBC 7.82 10^3/uL (4.4-10.8)
[2022-05-31 08:52] LABS: VALPROIC ACID 67.2 ug/mL
[2022-05-31 08:59] LABS: ALT 41 U/L (16-63); AST 18 U/L (15-37); Albumin 3.5 g/dL (3.4-5.0); Alkaline Phosphatase 55 U/L (46-116); Anion Gap 7.1 mmol/L (3-11); BUN 20 mg/dL (7-18); Bilirubin, Total 0.3 mg/dL (0.2-1.0); CO2 31.9 mmol/L (21.0-32.0); CREATININE 1.1 mg/dL (0.70-1.30); Calcium 9.2 mg/dL (8.5-10.1); Calculated LDL 117 mg/dL (<100); Chloride 103 mmol/L (98-107); Cholesterol 200 mg/dL (<200); Glucose 104 mg/dL (74-106); HDL Cholesterol 47 mg/dL (40-60); Sodium 142 mmol/L (136-145); TSH (W/Ref FT4) 6.98 uIU/mL (0.36-3.74); Total Protein 7.3 g/dL (6.4-8.2); Triglyceride 182 mg/dL (<150)
[2022-05-31 09:18] LABS: FREE T4 1.01 ng/dL (0.76-1.46)
== END 2022-05-31 03:09 | disposition home or self-care (01) ==
LOC: LBO 03:08
PROVIDERS: PCP Family Medicine; Visit Provider Family Medicine
DX: F90.0 Attention-deficit hyperactivity disorder, predominantly inattentive type; Z51.81 Encounter for therapeutic drug level monitoring; E03.9 Hypothyroidism, unspecified; I10 Essential (primary) hypertension; Z00.00 Encounter for general adult medical examination without abnormal findings
CPT/HCPCS: 36415; 80053; 80061; 85027; 80164; 84439; 84443

== ENCOUNTER 2022-11-05 16:19 | Outpatient (CLI) | payer BC, SELFPAY ==
--- NOTE | 2022-11-05 12:00 | DI.RAD_ITS ---
Exam(s) XR CHEST 2V PA LATERAL EXAM: XR CHEST 2V PA LATERAL CLINICAL HISTORY: SHORTNESS OF BREATH-R06.02 TECHNIQUE: 2D digital imaging was performed. COMPARISON: CR CHEST 2 VIEWS PA,LAT from 03/24/2017 FINDINGS: HEART: Normal size. Aorta: Not dilated. PULMONARY VASCULATURE: Normal. LUNGS: Clear. PLEURAL SPACE: No pleural effusion or pneumothorax. BONE:Old right rib fractures. IMPRESSION: No acute abnormality. DATA REPOSITORY: RADIATION DOSE DELIVERED:
== END 2022-11-05 16:39 ==
PROVIDERS: PCP Family Medicine; Visit Provider Nurse Practitioner Family
DX: R06.02 Shortness of breath (principal)
CPT/HCPCS: 71046

== ENCOUNTER 2022-11-12 15:45 | Outpatient (CLI) | payer BC, SELFPAY ==
[2022-11-12 10:47] LABS: D-Dimer 605 ng/mlFEU (<500)
== END 2022-11-12 15:46 | disposition home or self-care (01) ==
LOC: LBO 15:45
PROVIDERS: PCP Family Medicine; Visit Provider Emergency Medicine
DX: R06.02 Shortness of breath (principal)
CPT/HCPCS: 36415; 85379

== ENCOUNTER 2023-04-16 03:34 | Outpatient (CLI) | payer MEDICARE, BC, SELFPAY ==
[2023-04-16] MEDS: Inhaler, Assist Device 1 EACH MC (08:59)
[2023-04-16] MEDS: Albuterol HFA 18 GM 200 PUFF INH IH (08:59)
--- NOTE | 2023-04-16 12:18 | W.PFT ---
Date of service: 04/16/23 Time of Service: 07:57 Pulmonary Function Test Result Indications: Pneumonia Interpretation Spirometry: There is no airflow limitation. There is no bronchodilator response. Lung Volumes: Normal lung volumes. Diffusion Capacity: Normal diffusion Airway Pressure: Normal airways resistance. Impression Normal pulmonary function. Clinical Correlation therefore is recommended.
== END 2023-04-16 03:35 | disposition home or self-care (01) ==
PROVIDERS: PCP Family Medicine; Visit Provider Family Medicine
DX: R06.02 Shortness of breath (principal)
CPT/HCPCS: 94060; 94726; 94729

== ENCOUNTER 2023-09-12 13:06 | Outpatient (CLI) | payer MEDICARE, BC, SELFPAY ==
[2023-09-12 09:24] LABS: ALT 34 U/L (16-63); AST 24 U/L (15-37); Albumin 3.6 g/dL (3.4-5.0); Alkaline Phosphatase 72 U/L (46-116); Anion Gap 6.1 mmol/L (3-11); BUN 9 mg/dL (7-18); Bilirubin, Total 0.5 mg/dL (0.2-1.0); CO2 29.9 mmol/L (21.0-32.0); CREATININE 1.1 mg/dL (0.70-1.30); Calculated LDL 92 mg/dL (<100); Chloride 108 mmol/L (98-107); Cholesterol 167 mg/dL (<200); Glucose 110 mg/dL (74-106); HDL Cholesterol 52 mg/dL (40-60); Potassium 4.1 mmol/L (3.5-5.1); Sodium 144 mmol/L (136-145); TSH (W/Ref FT4) 0.74 uIU/mL (0.36-3.74); Total Protein 7.2 g/dL (6.4-8.2); Triglyceride 118 mg/dL (<150)
== END 2023-09-12 13:07 | disposition home or self-care (01) ==
LOC: LBO 13:07
PROVIDERS: PCP Family Medicine; Visit Provider Family Medicine
DX: E03.9 Hypothyroidism, unspecified (principal); I10 Essential (primary) hypertension
CPT/HCPCS: 36415; 80053; 80061; 84443

== ENCOUNTER 2023-09-30 16:18 | Emergency (ER) | payer MEDICARE, BC, SELFPAY ==
[2023-09-30 16:21] VITALS: BP 128/75; PULSE 65; RESP 15; TEMP 36.6; O2SAT 97
--- NOTE | 2023-09-30 16:45 | DI.RAD_ITS ---
Exam(s) XR HAND LT COMPLETE EXAM: XR HAND LT COMPLETE CLINICAL HISTORY: index finger injury. TECHNIQUE: 2D digital imaging was performed. Three views. COMPARISON: CR XR HAND LT COMPLETE from 06/05/2021 FINDINGS: BONES: No acute fracture is present. No bony destructive lesion is seen. JOINTS: No dislocation present. [id number] degenerative changes interphalangeal joints . SOFT TISSUE: Normal. IMPRESSION: No acute abnormality DATA REPOSITORY: RADIATION DOSE DELIVERED:
--- NOTE | 2023-09-30 18:25 | W.ED.GENAD ---
Discharge Plan Disposition Patient Disposition: Home Discharge Details Clinical Impression: Contusion of left index finger Primary Care Provider: Jackelin Jacobs ED Provider: Chung Ricketts Home Meds and New Rx's Prescriptions: Continued losartan-hydrochlorothiazide 50-12.5 mg tablet 1 tab PO DAILY Qty: 90 3RF triamcinolone acetonide 0.1 % cream 1 applic TP BID Qty: 80 4RF sildenafil 100 mg tablet 100 mg PO DAILY PRN (Reason: sexual activity) Qty: 30 3RF Rx Instructions: administer 30 minutes to 4 hours before activity prednisone 10 mg tablet See Rx Instructions PO DAILY PRN (Reason: rash) Qty: 30 3RF Rx Instructions: orally daily for 3 days, prn loperamide 2 mg capsule 2 mg PO Q6H PRN (Reason: loose stool) Qty: 90 3RF escitalopram oxalate [Lexapro] 10 mg tablet 10 mg PO DAILY Qty: 90 4RF levothyroxine 150 mcg tablet 150 mcg PO DAILY Qty: 90 12RF divalproex [Depakote ER] 500 mg tablet extended release 24 hr 1,500 mg PO HS Qty: 270 7RF acetaminophen 500 mg capsule 1,000 mg PO Q8H PRN PRNQty: 90 0RF Discharge Instructions Instructions: Contusion in Adults (ED) Additional Instructions: At this time your radiological imaging shows no signs of fracture. You may continue use [id number] pain medication as needed and perform activities as tolerated. If you have any new or significant worsening symptoms return the emergency department for reassessment otherwise follow-up with your primary care provider for recheck if not improving in the next couple weeks. Referrals: Jackelin Jacobs MD, [place] [Primary Care Provider] - (As needed for reassessment improving) Discharge Data Discharge Date/Time-TO BE ENTERED AT DEPARTURE: 09/30/23 18:39 Medical Decision Making Patient presenting to the emergency department for chief complaint of slip and fall with injury to left index finger. He states this occurred approximately 2 weeks ago and is presenting due to lack of complete improvement. He states at rest there is minimal pain but with movement there can be moderate pain. There is palpable discomfort to the base of the index finger. Exam is otherwise unremarkable. Radiological imaging was performed and shows no acute signs of fracture. Patient was splinted with finger splint and encouraged to follow-up with primary care provider along with continued use of olno-lde-upevwld medications. After discussion of diagnosis and plan of care patient has no further needs, questions, or concerns and states clear understanding to return to the emergency department for any worsening symptoms. This documentation was generated using [employer] system, please disregard any oddities of phrase or misspellings. Imaging Data Radiologic Study: Imaging: X-Ray Radiologist's impression: Exam(s) XR HAND LT COMPLETE EXAM: XR HAND LT COMPLETE CLINICAL HISTORY: index finger injury. TECHNIQUE: 2D digital imaging was performed. Three views. COMPARISON: CR XR HAND LT COMPLETE from 06/05/2021 FINDINGS: BONES: No acute fracture is present. No bony destructive lesion is seen. JOINTS: No dislocation present. [id number] degenerative changes interphalangeal joints . SOFT TISSUE: Normal. IMPRESSION: No acute abnormality HPI General Mode of arrival: ambulatory. Date/Time Provider Initiated Documentation: 09/30/23 16:26. Limitations to Documentation: no limitations. Information obtained by: patient and RN notes reviewed. History of Present Illness 67 year old M presents to the emergency department with the chief complaint of Left index finger injury, described as moderate, and is localized to the left and upper extremity. Patient started experiencing this week(s) (2) and it has been intermittent. Movement worsens symptoms . Patient notes no other symptoms.. Related Data Home Medications Medication Instructions Recorded Confirmed acetaminophen 500 mg capsule 1,000 mg (2 x 500 mg) PO Q8H PRN 06/13/21 09/30/23 PRN #90 caps escitalopram oxalate 10 mg tablet 10 mg PO DAILY #90 tabs 03/05/23 09/30/23 (Lexapro) losartan 50 mg-hydrochlorothiazide 1 tab PO DAILY #90 tabs 03/26/23 09/30/23 12.5 mg tablet prednisone 10 mg tablet See Rx Instructions PO DAILY PRN 03/26/23 09/30/23 rash #30 tabs sildenafil 100 mg tablet 100 mg PO DAILY PRN sexual 03/26/23 09/30/23 activity #30 tabs triamcinolone acetonide 0.1 % 1 applic topical BID #80 grams 03/26/23 09/30/23 topical cream levothyroxine 150 mcg tablet 150 mcg PO DAILY #90 tab-caps 08/23/23 09/30/23 divalproex 500 mg tablet,extended 1,500 mg (3 x 500 mg) PO HS #270 09/16/23 09/30/23 release 24 hr (Depakote ER) tabs loperamide 2 mg capsule 2 mg PO Q6H PRN loose stool #90 09/17/23 09/30/23 caps Previous Rx's Medication Instructions Recorded acetaminophen 500 mg capsule 1,000 mg (2 x 500 mg) PO Q8H PRN 06/13/21 PRN #90 caps escitalopram oxalate 10 mg tablet 10 mg PO DAILY #90 tabs 03/05/23 (Lexapro) losartan 50 mg-hydrochlorothiazide 1 tab PO DAILY #90 tabs 03/26/23 12.5 mg tablet prednisone 10 mg tablet See Rx Instructions PO DAILY PRN 03/26/23 rash #30 tabs sildenafil 100 mg tablet 100 mg PO DAILY PRN sexual 03/26/23 activity #30 tabs triamcinolone acetonide 0.1 % 1 applic topical BID #80 grams 03/26/23 topical cream levothyroxine 150 mcg tablet 150 mcg PO DAILY #90 tab-caps 08/23/23 divalproex 500 mg tablet,extended 1,500 mg (3 x 500 mg) PO HS #270 09/16/23 release 24 hr (Depakote ER) tabs loperamide 2 mg capsule 2 mg PO Q6H PRN loose stool #90 09/17/23 caps Allergies Allergy/AdvReac Type Severity Reaction Status Date / Time valproic acid AdvReac Intermediate Over-stimul Verified 09/30/23 16:26 ation lisinopril AdvReac Mild COUGH Verified 09/30/23 16:26 Opioids - Morphine Analogues AdvReac Mild ADDICTIVE Verified 09/30/23 16:26 PERSONALITY General Stated Complaint: Orthopedic DIANE: 4 Review of Systems Musculoskeletal Musculoskeletal: Reports as per HPI, Denies deformity, Reports arthralgias, Reports joint swelling, Denies numbness, Reports stiffness and Denies tingling Integumentary/Breasts Skin/Breast: Denies unusual bruising and Denies wounds Neurologic Neurologic: Denies numbness and Denies tingling PFSH All Active Problems Contusion of left index finger (Acute) SOB (shortness of breath) (Acute) Skin lesion (Acute) Hearing loss (Acute) Left carpal tunnel syndrome (Acute) S/P ECTR: 06/13/2021 Right carpal tunnel syndrome (Acute) S/P ECTR: 06/20/2021 Trigger finger, right middle finger (Acute) S/P Release: 06/20/2021 Trigger finger, left middle finger (Acute) S/P release: 06/13/2021 Frozen shoulder (Acute) Actinic keratosis (Acute) Right shoulder pain (Acute) fx 2018 Annual physical exam (Acute) Attention deficit hyperactivity disorder, predominantly inattentive type (Acute) Chronic lumbar radiculopathy (Acute 03/03/15) History of spinal surgery (Acute) Neck pain (Acute) Rib pain (Acute 01/02/16) Seborrheic keratosis (Acute 08/02/15) Snoring (Acute 09/27/15) Spasm of back muscles (Acute 04/12/15) Tobacco dependence syndrome (Acute) Primary osteoarthritis of right knee (Chronic) Synvisc injection: 04/20/2019 Primary osteoarthritis of left knee (Chronic) Synvisc injection: 04/20/2019 Sleep apnea (Acute) Actinic keratosis (Acute) 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 Asthma Other and unspecified alcohol dependence, continuous drinking behavior 03/03/15 Muscle spasm of back 04/12/15 Seborrheic keratoses 08/02/15 Fracture of right scapular body Lumbar back pain S/P surgery; now w/ repeat disc herniation Annual physical exam (01/30/18) Multiple rib fractures HTN (hypertension) Depressive disorder Hypothyroidism Alcohol dependence Surgical History History of back surgery S/P knee surgery PROCEDURES Back pain s/p surgery, now with repeat disc herniation; bilateral knee surgery Colonoscopy - MAC (03/22/17) Family History Father , age 68 Lung cancer Mother , age 72 Lung cancer Sister No problems noted. Brother No problems noted. Maternal Grandfather Heart disease Paternal Grandfather Heart disease Maternal Grandmother Heart disease Paternal Grandmother Stroke Brother No problems noted. Brother No problems noted. Daughter No problems noted. Daughter Depression Social History Smoking/Tobacco Use Status: Former Tobacco Use tobacco type: smokeless tobacco Quit Date: 10/27/20 Tobacco: How many years used: 50 Smokeless tobacco user: snuff Second Hand Exposure: Yes Smoking risk assessment performed?: Yes Alcohol Intake: former Drug use: Never Substance use type: does not use Adopted: No Caregiver/Support person: No Foster care: No Household members: spouse Housing: house Number of Children: 2 number of grandchildren: 5 Communication Needs: None Education Level: college Do you need help understanding health information?: Rarely current occupation: retired Pets and animals: No Sexually active: Yes Do you think of yourself as: straight/heterosexual Current gender identity: male What is your relationship status?: How often do you talk on the phone with friends or family?: three or more times per week How often do you get together with friends or relatives?: three or more times per week How often do you attend catholic or moravian services?: 4 or more times per year Do you belong to any clubs or organized social groups?: yes Panel score (0-1 are the most socially isolated patients): 4 What type of physical activity do you participate in: walking Duration: > 90 minutes/day Frequency: 5-6 times per week Apryl/Restoration: Restorationism Special apryl needs: No Agree to transfusion: Yes Seatbelt use: always Helmet use: Yes Helmet use: always Drive intox or ride w/intox cryogenic transport driver: No Working smoke detector in home: Yes Carbon monox detector in home: Yes Firearms in home: Yes Firearms unloaded and locked: Yes Do you feel safe at home: Yes Do you feel safe in your relationship?: Yes Victim of physical abuse: No Victim of emotional abuse: No Victim of sexual abuse: No Would you like helpful sources: No Exam Const General: cooperative, no acute distress and not ill appearing Orientation: alert, awake and oriented x3 HENMT Mouth: moist mucous membranes Resp Effort & Inspection: normal respiratory effort, able to speak in complete sentences and no respiratory distress Skin General skin exam: no rashes or lesions noted Neuro General: patient alert, patient awake, patient oriented x3, moves all extremities and no focal motor deficits Sensory Exam: no sensory deficits noted Extrem General: normal exam except as noted Left upper extremity: hand Details: normal to inspection, tendon exam normal, tenderness Location: of the 2nd digit Location: at the MCP joint and at the proximal phalanx, vascular exam Details: normal capillary refill and abnormal ROM of finger Details: pain with active ROM Location: of the 2nd digit; able to flex and extend Course Vital Signs Vital signs: Vital Signs Temperature 36.6 C 09/30/23 16:21 Pulse 65 09/30/23 16:21 Respiratory Rate 15 09/30/23 16:21 Blood Pressure 128/75 09/30/23 16:21 Pulse Oximetry 97 09/30/23 16:21 Temperature 36.6 C 09/30/23 16:21 Temperature Source Temporal Artery Scan 09/30/23 16:21 Pulse 65 09/30/23 16:21 Respiratory Rate 15 09/30/23 16:21 Respiratory Effort Normal 09/30/23 16:25 Blood Pressure 128/75 09/30/23 16:21 Blood Pressure Position Sitting 09/30/23 16:21 Pulse Oximetry 97 09/30/23 16:21 Oxygen Delivery Method Room Air 09/30/23 16:21 Oxygen Flow Rate 0 09/30/23 16:21 Pain Level 1 09/30/23 16:25 Comment 7-8 when its bumped or cracks 09/30/23 16:21
== END 2023-09-30 18:39 | disposition home or self-care (01) ==
PROVIDERS: Emergency Provider Nurse Practitioner Family; PCP Family Medicine
DX: S60.022A Contusion of left index finger without damage to nail, initial encounter (principal); I10 Essential (primary) hypertension; E03.9 Hypothyroidism, unspecified; W00.0XXA Fall on same level due to ice and snow, initial encounter; Y93.01 Activity, walking, marching and hiking; Y92.89 Other specified places as the place of occurrence of the external cause
CPT/HCPCS: 36415; 99283; 73130; 84153

== ENCOUNTER 2023-09-30 20:25 | Outpatient (CLI) | payer MEDICARE, BC, SELFPAY ==
[2023-10-01 18:23] LABS: PSA, Diagnostic 3.9 ng/mL (<=4.5)
== END 2023-09-30 20:26 | disposition home or self-care (01) ==
LOC: LBO 20:25
PROVIDERS: PCP Family Medicine; Visit Provider Family Medicine
DX: N40.0 Benign prostatic hyperplasia without lower urinary tract symptoms (principal)
CPT/HCPCS: 36415; 84153

== ENCOUNTER 2024-03-27 16:29 | Outpatient (CLI) | payer MEDICARE, BC, SELFPAY ==
[2024-03-27 16:50] LABS: Hemoglobin A1C 5.6 % (<5.7)
== END 2024-03-27 16:30 | disposition home or self-care (01) ==
LOC: LBO 16:30
PROVIDERS: PCP Family Medicine; Visit Provider Family Medicine
DX: E11.9 Type 2 diabetes mellitus without complications (principal)
CPT/HCPCS: 36415; 83036

== ENCOUNTER → 2024-05-05 10:54 | Outpatient (BNVA) | payer MEDICARE, BC, SELFPAY | PROVIDERS: PCP Family Medicine; Referring Provider Family Medicine; Visit Provider Nurse Practitioner Gerontology | DX: N48.6 Induration penis plastica (principal) | CPT/HCPCS: 99215 ==

== ENCOUNTER → 2024-08-04 08:25 | Outpatient (BNVA) | payer MEDICARE, BC, SELFPAY | PROVIDERS: PCP Family Medicine; Referring Provider Family Medicine; Visit Provider Urology | DX: N48.6 Induration penis plastica (principal) | CPT/HCPCS: 54200; J3490 ==

== ENCOUNTER → 2024-08-25 09:25 | Outpatient (BNVA) | payer MEDICARE, BC, SELFPAY | PROVIDERS: PCP Family Medicine; Referring Provider Family Medicine; Visit Provider Urology | DX: N48.6 Induration penis plastica (principal) | CPT/HCPCS: 54200; J3490 ==

== ENCOUNTER → 2024-09-15 09:53 | Outpatient (BNVA) | payer MEDICARE, BC, SELFPAY | PROVIDERS: PCP Family Medicine; Referring Provider Family Medicine; Visit Provider Urology | DX: N48.6 Induration penis plastica (principal) | CPT/HCPCS: 54200; J3490 ==

== ENCOUNTER → 2024-10-06 08:28 | Outpatient (BNVA) | payer MEDICARE, BC, SELFPAY | PROVIDERS: PCP Family Medicine; Referring Provider Family Medicine; Visit Provider Urology | DX: N48.6 Induration penis plastica (principal) | CPT/HCPCS: 54200; J3490 ==

== ENCOUNTER 2024-10-19 10:59 | Outpatient (CLI) | payer MEDICARE, BC, SELFPAY ==
[2024-10-19 12:30] LABS: Abs Immature Grans 0.02 10^3/uL (0.0-0.06); Absolute Eosinophil Count 0.26 10^3/uL (0.0-0.7); Absolute Lymphocyte Count 2.12 10^3/uL (1.2-3.4); Absolute Monocyte Count 0.66 10^3/uL (0.1-0.8); Absolute Neutrophil Count 3.41 10^3/uL (1.2-6.7); Basophils % 1.5 %; HCT 44.8 % (40.0-50.0); HGB 15.4 g/dL (13.5-17.5); Immature Grans % 0.3 %; Lymphocytes % 32.3 %; MCH 29.6 pg (27.0-33.0); MCHC 34.4 % (32.0-36.0); MCV 86 fL (80-95); MPV 10.2 fL (8.0-11.0); Neutrophils % 51.9 %; Platelet Count 213 10^3/uL (130-400); RDW 12.9 % (11.8-14.1); WBC 6.57 10^3/uL (4.4-10.8)
[2024-10-19 12:44] LABS: ALT 32 U/L (16-63); AST 28 U/L (15-37); Albumin 3.8 g/dL (3.4-5.0); Alkaline Phosphatase 68 U/L (46-116); Anion Gap 3.3 mmol/L (3-11); BUN 10 mg/dL (7-18); Bilirubin, Total 0.53 mg/dL (0.2-1.0); CO2 34.7 mmol/L (21.0-32.0); Calcium 9.4 mg/dL (8.5-10.1); Calculated LDL 93 mg/dL (<100); Chloride 105 mmol/L (98-107); Cholesterol 169 mg/dL (<200); Estimated GFR 83.01 (mL/min/1.73m2); Glucose 83 mg/dL (74-106); HDL Cholesterol 61 mg/dL (40-60); Potassium 3.9 mmol/L (3.5-5.1); Sodium 143 mmol/L (136-145); TSH (W/Ref FT4) 0.01 uIU/mL (0.36-3.74); Total Protein 7.2 g/dL (6.4-8.2); Triglyceride 75 mg/dL (<150)
[2024-10-19 13:27] LABS: FREE T4 1.51 ng/dL (0.76-1.46)
[2024-10-19 18:43] LABS: PSA, Diagnostic 4.5 ng/mL (<=4.5)
== END 2024-10-19 11:00 | disposition home or self-care (01) ==
LOC: LOS 10:59
PROVIDERS: PCP Family Medicine; Referring Provider Family Medicine; Visit Provider Family Medicine
DX: Z79.899 Other long term (current) drug therapy (principal); E11.9 Type 2 diabetes mellitus without complications; I10 Essential (primary) hypertension; N40.0 Benign prostatic hyperplasia without lower urinary tract symptoms; E03.9 Hypothyroidism, unspecified
CPT/HCPCS: 36415; 80053; 80061; 83036; 84153; 84439; 84443; 85025

== ENCOUNTER → 2024-10-27 08:31 | Outpatient (BNVA) | payer MEDICARE, BC, SELFPAY | PROVIDERS: PCP Family Medicine; Referring Provider Family Medicine; Visit Provider Urology | DX: N48.6 Induration penis plastica (principal) | CPT/HCPCS: 54200 ==

== ENCOUNTER → 2024-11-17 08:37 | Outpatient (BNVA) | payer MEDICARE, BC, SELFPAY | PROVIDERS: PCP Family Medicine; Referring Provider Family Medicine; Visit Provider Urology | DX: N48.6 Induration penis plastica (principal); R97.20 Elevated prostate specific antigen [PSA] | CPT/HCPCS: 54200; J3490 ==

== ENCOUNTER 2024-12-02 16:15 | Outpatient (CLI) | payer MEDICARE, BC, SELFPAY ==
[2024-12-02 15:57] LABS: TSH (W/Ref FT4) 0.17 uIU/mL (0.36-3.74)
[2024-12-02 16:18] LABS: FREE T4 1.25 ng/dL (0.76-1.46)
== END 2024-12-02 16:16 | disposition home or self-care (01) ==
LOC: LBO 12-15 16:15
PROVIDERS: PCP Family Medicine; Visit Provider Family Medicine
DX: E03.9 Hypothyroidism, unspecified (principal)
CPT/HCPCS: 36415; 84439; 84443

== ENCOUNTER → 2024-12-08 08:59 | Outpatient (BNVA) | payer MEDICARE, BC, SELFPAY | PROVIDERS: PCP Family Medicine; Visit Provider Urology | DX: N48.6 Induration penis plastica (principal); R97.20 Elevated prostate specific antigen [PSA] | CPT/HCPCS: 54200; J3490 ==

== ENCOUNTER → 2024-12-29 13:07 | Outpatient (BNVA) | payer MEDICARE, BC, SELFPAY | PROVIDERS: PCP Family Medicine; Visit Provider Urology | DX: N48.6 Induration penis plastica (principal) | CPT/HCPCS: 54200; J3490 ==

== ENCOUNTER → 2025-01-19 08:33 | Outpatient (BNVA) | payer MEDICARE, BC, SELFPAY | PROVIDERS: PCP Family Medicine; Visit Provider Urology | DX: N48.6 Induration penis plastica (principal) | CPT/HCPCS: 54200; J3490 ==

== ENCOUNTER → 2025-03-09 09:57 | Outpatient (BNVA) | payer MEDICARE, BC, SELFPAY | PROVIDERS: PCP Family Medicine; Referring Provider Family Medicine; Visit Provider Urology | DX: R97.20 Elevated prostate specific antigen [PSA] (principal); N40.2 Nodular prostate without lower urinary tract symptoms; N48.6 Induration penis plastica; R39.9 Unspecified symptoms and signs involving the genitourinary system; Z80.42 Family history of malignant neoplasm of prostate | CPT/HCPCS: 81003; 99214 ==

== ENCOUNTER 2025-03-09 11:50 | Outpatient (CLI) | payer MEDICARE, BC, SELFPAY ==
[2025-03-09 23:14] LABS: PSA, Diagnostic 4.4 ng/mL (<=4.5)
== END 2025-03-09 11:51 | disposition home or self-care (01) ==
LOC: LBO 11:51
PROVIDERS: PCP Family Medicine; Visit Provider Urology
DX: R97.20 Elevated prostate specific antigen [PSA] (principal)
CPT/HCPCS: 36415; 81003; 99214; 84153

== ENCOUNTER → 2025-04-13 11:00 | Outpatient (BNVA) | payer MEDICARE, BC, SELFPAY | PROVIDERS: PCP Family Medicine; Referring Provider Family Medicine; Visit Provider Urology | DX: N48.6 Induration penis plastica (principal); N40.2 Nodular prostate without lower urinary tract symptoms; R97.20 Elevated prostate specific antigen [PSA] | CPT/HCPCS: 99214 ==

== ENCOUNTER → 2025-05-04 08:31 | Outpatient (BNVA) | payer MEDICARE, BC, SELFPAY | PROVIDERS: PCP Family Medicine; Visit Provider Urology | DX: N48.6 Induration penis plastica (principal); R97.20 Elevated prostate specific antigen [PSA] | CPT/HCPCS: 99213 ==

== ENCOUNTER → 2025-05-25 08:26 | Outpatient (BNVA) | payer MEDICARE, BC, SELFPAY | PROVIDERS: PCP Family Medicine; Visit Provider Urology | DX: N48.6 Induration penis plastica (principal) | CPT/HCPCS: 54200 ==

== ENCOUNTER → 2025-05-28 09:01 | Outpatient (BNVA) | payer MEDICARE, BC, SELFPAY | PROVIDERS: PCP Family Medicine; Referring Provider Family Medicine; Visit Provider Urology | DX: N48.6 Induration penis plastica (principal) | CPT/HCPCS: 54200 ==

== ENCOUNTER → 2025-06-01 09:23 | Outpatient (BNVA) | payer MEDICARE, BC, SELFPAY | PROVIDERS: PCP Family Medicine; Referring Provider Family Medicine; Visit Provider Urology | DX: N48.6 Induration penis plastica (principal) | CPT/HCPCS: 99024 ==

== ENCOUNTER → 2025-07-13 13:57 | Outpatient (BNVA) | payer MEDICARE, BC, SELFPAY | PROVIDERS: PCP Family Medicine; Referring Provider Family Medicine; Visit Provider Urology | DX: N48.6 Induration penis plastica (principal) | CPT/HCPCS: 54200 ==

== ENCOUNTER → 2025-07-16 13:53 | Outpatient (BNVA) | payer MEDICARE, BC, SELFPAY | PROVIDERS: PCP Family Medicine; Referring Provider Family Medicine; Visit Provider Urology | DX: N48.6 Induration penis plastica (principal) | CPT/HCPCS: 99213 ==